=== PATIENT | female | born 2005 | race Caucasian/White ===

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

== ENCOUNTER → 2024-03-01 10:31 | Outpatient (REF) | payer BC, SELFPAY | LOC: HWRAD 10:31 | PROVIDERS: ATTENDING PHYSICIAN Obstetrics & Gynecology Gynecology; FAMILY PHYSICIAN Pediatrics | DX: N70.93 Salpingitis and oophoritis, unspecified (principal); N73.0 Acute parametritis and pelvic cellulitis | CPT/HCPCS: 76830; 76856 ==

== ENCOUNTER → 2025-01-13 08:40 | Outpatient (REF) | payer BC, SELFPAY | LOC: HWRAD 08:40 | PROVIDERS: ATTENDING PHYSICIAN Obstetrics & Gynecology Gynecology; FAMILY PHYSICIAN Physician Assistant Medical | DX: N83.209 Unspecified ovarian cyst, unspecified side (principal); N70.11 Chronic salpingitis | CPT/HCPCS: 76830; 76856 ==